=== PATIENT | female | born 1995 ===

== ENCOUNTER → 2021-01-08 | Outpatient (CLI) | payer OTHER ==
[2021-01-13 05:09] LABS: HSV-1 DNA Positive (Negative); HSV-2 DNA Negative (Negative)
== END | disposition home or self-care (01) ==
LOC: LAB SHORT 09:30
PROVIDERS: Physician Assistant Surgical
DX: K13.0 Diseases of lips (principal)
CPT/HCPCS: 87529

== ENCOUNTER → 2021-09-16 | Outpatient (CLI) | payer OTHER | END | disposition home or self-care (01) | LOC: LAB SHORT 10:29 | DX: D23.61 Other benign neoplasm of skin of right upper limb, including shoulder (principal) | CPT/HCPCS: 88305; 88342 ==

== ENCOUNTER → 2021-10-15 | Outpatient (CLI) | payer OTHER ==
[2021-10-18 15:11] LABS: CHLAMYDIA TRACHOMATIS, NAA Negative (Negative)
== END | disposition home or self-care (01) ==
LOC: LAB SHORT 17:02 → LAB 17:02
PROVIDERS: Advanced Practice Midwife
DX: Z01.419 Encounter for gynecological examination (general) (routine) without abnormal findings (principal); Z11.3 Encounter for screening for infections with a predominantly sexual mode of transmission
CPT/HCPCS: 87491; 87591; G0123

== ENCOUNTER → 2021-11-12 | Outpatient (CLI) | payer OTHER ==
[2021-11-15 13:07] LABS: DIA MOM 1.24 (.); DIA VALUE 173.39 pg/mL (.); DSR (BY AGE) 1 IN 871 (.); DSR (SECOND TRIMESTER) 1 IN 5621 (.); GEST. AGE ON COLLECTION DATE 16.4 WEEKS (.); HCG MOM 1.16 (.); HCG VALUE 39982 mIU/mL (.); INSULIN DEP DIABETES No (.); MATERNAL AGE AT EDD 27.8 yr (.); MULTIPLE GESTATION No (.); OSBR RISK 1 IN 6499 (.); RACE Other (.); RESULTS Report (.); T18 RISK Not increased (.); TEST RESULTS: *Screen Negative* (.); UE3 VALUE 1.15 ng/mL (.); WEIGHT 174 lbs (.)
== END | disposition home or self-care (01) ==
LOC: LAB 11:32 → RAD SHORT 11:32 → LAB SHORT 11:32
PROVIDERS: Advanced Practice Midwife
DX: Z34.92 Encounter for supervision of normal pregnancy, unspecified, second trimester (principal)
CPT/HCPCS: 36415; 82105; 82677; 84702; 86336